=== PATIENT | female | born 1985 | race African-American/Black ===

== ENCOUNTER 2017-06-22 13:25 | Emergency (ER) | payer MEDICAID ==
[~2017-06-22] VITALS: Ht 160 cm; Wt 105.0 kg
[2017-06-22] MEDS ORDERED: MORPHINE SULFATE 4 MG/ML CPJ (NOT FOR IM USE) IV STA (15:44)
[2017-06-22] MEDS ORDERED: ONDANSETRON HCL 4MG/2ML VIAL IV STA (15:44)
[2017-06-22] MEDS ORDERED: SODIUM CHLORIDE 0.9% 1,000 ML IV ONE (15:44)
[2017-06-22 16:12] LABS: CLARITY URINE CLEAR (CLEAR); COLOR URINE YELLOW (YELLOW); GLUCOSE URINE NEGATIVE (NEGATIVE); KETONES URINE NEGATIVE (NEGATIVE); LEUKOCYTE ESTERASE URINE NEGATIVE (NEGATIVE); NITRITE URINE NEGATIVE (NEGATIVE); OCCULT BLOOD URINE 3+ (NEGATIVE); PH URINE 6.5 (4.5-8.0); PROTEIN URINE NEGATIVE (NEGATIVE); SPECIFIC GRAVITY URINE 1.004 (1.005-1.030); UROBILINOGEN URINE 0.2 E.U./dL (0.2-1.0)
[2017-06-22 16:13] LABS: BASOPHILS % 0.5 % (0.0-2.0); CHLORIDE 100 mEq/L (98-107); EOSINOPHILS % 0.1 % (0.0-5.0); HEMATOCRIT. 33.2 % (36.0-48.0); LYMPHOCYTES % 21.1 % (20.0-50.0); MEAN CORPUSCULAR HEMOGLOBIN 26.6 pg (28.0-32.0); MEAN CORPUSCULAR VOLUME 80.3 fL (81.0-99.0); MEAN PLATELET VOLUME 9.2 fl (7.4-10.4); NEUTROPHILS % 72.3 % (40.0-76.0); PLATELET 252 x1000/uL (130-400); RED BLOOD CELL COUNT 4.14 mill/uL (4.2-5.4); RED CELL DISTRIBUTION WIDTH 14.7 % (11.6-14.6)
[2017-06-22 16:19] LABS: HCG SCREEN NEGATIVE
[2017-06-22 16:21] LABS: CARBON DIOXIDE 27 mEq/L (21-32)
[2017-06-22 17:47] VITALS: BP 113/68
== END 2017-06-22 17:51 | disposition home or self-care (01) ==
LOC: ER 14:04
DX: R10.30 Lower abdominal pain, unspecified (principal); I10 Essential (primary) hypertension; E11.9 Type 2 diabetes mellitus without complications; F17.200 Nicotine dependence, unspecified, uncomplicated
CPT/HCPCS: 36415; 80053; 81001; 84703; 85025; 96360; 99284; Z7610; J7030

== ENCOUNTER 2017-09-16 04:12 | Emergency (ER) | payer MEDICAID ==
[~2017-09-16] VITALS: Ht 162.6 cm; Wt 115.0 kg
[2017-09-16 04:21] VITALS: BP 146/99
[2017-09-16] MEDS ORDERED: ACETAMINOPHEN 325MG TABLET PO ONE (04:45)
== END 2017-09-16 05:30 | disposition home or self-care (01) ==
LOC: ER 04:12
DX: O26.891 Other specified pregnancy related conditions, first trimester (principal); T16.1XXA Foreign body in right ear, initial encounter; I10 Essential (primary) hypertension; E11.9 Type 2 diabetes mellitus without complications; Z3A.01 Less than 8 weeks gestation of pregnancy; X58.XXXA Exposure to other specified factors, initial encounter; Y93.89 Activity, other specified; Y92.89 Other specified places as the place of occurrence of the external cause; Y99.8 Other external cause status
CPT/HCPCS: 81025; 99282

== ENCOUNTER 2019-07-23 09:57 | Emergency (ER) | payer MEDICAID ==
[~2019-07-23] VITALS: Ht 172.7 cm; Wt 110.0 kg
[2019-07-23] MEDS ORDERED: SODIUM CHLORIDE 0.9% 1,000 ML IV ONE (10:14)
[2019-07-23] MEDS ORDERED: ALBUTEROL (0.083%) 2.5MG/3ML NEB HHN STA (10:52)
[2019-07-23 10:55] LABS: EOSINOPHILS % 1.1 % (0.0-5.0); HEMATOCRIT. 35.1 % (36.0-48.0); MEAN CORPUSCULAR HEMOGLOBIN 29.5 pg (28.0-32.0); MEAN CORPUSCULAR VOLUME 85.9 fL (81.0-99.0); MEAN PLATELET VOLUME 9.3 fl (7.4-10.4); MONOCYTES % 9.5 % (2.0-8.0); NEUTROPHILS % 56.4 % (40.0-76.0); PLATELET 244 x1000/uL (130-400); RED BLOOD CELL COUNT 4.08 mill/uL (4.2-5.4); RED CELL DISTRIBUTION WIDTH 13.7 % (11.6-14.6)
[2019-07-23 11:04] LABS: HCG SCREEN NEGATIVE
[2019-07-23 11:16] LABS: CHLORIDE 103 mEq/L (98-107)
[2019-07-23 11:19] LABS: CLARITY URINE CLEAR (CLEAR); COLOR URINE YELLOW (YELLOW); KETONES URINE NEGATIVE (NEGATIVE); LEUKOCYTE ESTERASE URINE NEGATIVE (NEGATIVE); NITRITE URINE NEGATIVE (NEGATIVE); OCCULT BLOOD URINE NEGATIVE (NEGATIVE); PROTEIN URINE NEGATIVE (NEGATIVE); SPECIFIC GRAVITY URINE 1.004 (1.005-1.030); UROBILINOGEN URINE 0.2 E.U./dL (0.2-1.0)
[2019-07-23 11:40] LABS: *AMPHETAMINES SCREEN URINE NEGATIVE (NEGATIVE); *BARBITURATES SCREEN URINE NEGATIVE (NEGATIVE)
[2019-07-23 11:41] LABS: *BENZODIAZEPINES SCREEN URINE NEGATIVE (NEGATIVE); *COCAINE SCREEN URINE NEGATIVE (NEGATIVE); METHADONE URINE SCREEN NEGATIVE (NEGATIVE); OPIATES URINE SCREEN NEGATIVE (NEGATIVE); PHENCYCLIDINE URINE SCREEN NEGATIVE (NEGATIVE)
[2019-07-23 11:42] LABS: CANNABINOID URINE SCREEN NEGATIVE (NEGATIVE)
[2019-07-23] MEDS ORDERED: POTASSIUM CHLORIDE 20MEQ TABLET SR PO ONE (12:15)
[2019-07-23 13:37] VITALS: BP 134/87
== END 2019-07-23 13:27 | disposition home or self-care (01) ==
LOC: ER 09:57
DX: J20.9 Acute bronchitis, unspecified (principal); R07.89 Other chest pain; E87.8 Other disorders of electrolyte and fluid balance, not elsewhere classified; E11.9 Type 2 diabetes mellitus without complications; I10 Essential (primary) hypertension; Z98.890 Other specified postprocedural states
CPT/HCPCS: 36415; 71045; 80053; 80305; 81003; 81025; 82962; 83880; 84484; 84703; 85025; 93005; 93970; 94640; 99284; J7030; J7611; Z7610

== ENCOUNTER 2019-11-17 21:37 | Emergency (ER) | payer MEDICAID ==
[~2019-11-17] VITALS: Ht 162.6 cm; Wt 100.0 kg
[2019-11-17] MEDS ORDERED: MAGNESIUM/ALUMINUM HYDROXIDE/SIMETHICONE 30ML UDC PO STA (22:57)
[2019-11-17] MEDS ORDERED: VISCOUS LIDOCAINE 2% 15 ML UDC PO STA (22:57)
[2019-11-17] MEDS ORDERED: OMEPRAZOLE 20MG CAPSULE EXTENDED RELEASE PO ONE (23:00)
[2019-11-17 23:25] LABS: CLARITY URINE CLEAR (CLEAR); COLOR URINE YELLOW (YELLOW); KETONES URINE NEGATIVE (NEGATIVE); LEUKOCYTE ESTERASE URINE NEGATIVE (NEGATIVE); NITRITE URINE NEGATIVE (NEGATIVE); OCCULT BLOOD URINE 2+ (NEGATIVE); PH URINE 6.5 (4.5-8.0); PROTEIN URINE TRACE (NEGATIVE); SPECIFIC GRAVITY URINE 1.009 (1.005-1.030); UROBILINOGEN URINE 0.2 E.U./dL (0.2-1.0)
[2019-11-17] MEDS ORDERED: ASPIRIN 81MG TABLET PO ONE (23:45)
[2019-11-18 00:03] LABS: BASOPHILS % 0.6 % (0.0-2.0); EOSINOPHILS % 0.9 % (0.0-5.0); HEMOGLOBIN. 11.6 g/dL (12.0-16.0); LYMPHOCYTES % 29.6 % (20.0-50.0); MEAN CORPUSCULAR HEMOGLOBIN 28.7 pg (28.0-32.0); MEAN CORPUSCULAR VOLUME 86.9 fL (81.0-99.0); MEAN PLATELET VOLUME 8.9 fl (7.4-10.4); MONOCYTES % 5.2 % (2.0-8.0); NEUTROPHILS % 63.7 % (40.0-76.0); PLATELET 284 x1000/uL (130-400); RED BLOOD CELL COUNT 4.03 mill/uL (4.2-5.4); RED CELL DISTRIBUTION WIDTH 13.3 % (11.6-14.6)
[2019-11-18 00:12] LABS: CHLORIDE 104 mEq/L (98-107)
[2019-11-18 00:13] LABS: D-DIMER 0.91 mg/L FEU (<0.50); PARTIAL THROMBOPLASTIN TIME 26.8 sec (23.4-31.0); PROTHROMBIN TIME 10.5 sec (9.6-11.0)
[2019-11-18] MEDS ORDERED: CEFTRIAXONE 1 G PREMIX 50 ML IV ONE (01:00)
[2019-11-18] MEDS ORDERED: IOHEXOL-350 100 ML BOTTLE ONE (03:14)
[2019-11-18] MEDS ORDERED: POTASSIUM CHLORIDE 20MEQ TABLET SR PO SCH (11:15)
[2019-11-18 13:15] LABS: *AMPHETAMINES SCREEN URINE NEGATIVE (NEGATIVE)
[2019-11-18 13:16] LABS: *BARBITURATES SCREEN URINE NEGATIVE (NEGATIVE); *BENZODIAZEPINES SCREEN URINE NEGATIVE (NEGATIVE); *COCAINE SCREEN URINE NEGATIVE (NEGATIVE); METHADONE URINE SCREEN NEGATIVE (NEGATIVE); OPIATES URINE SCREEN NEGATIVE (NEGATIVE)
[2019-11-18 13:17] LABS: CANNABINOID URINE SCREEN NEGATIVE (NEGATIVE); PHENCYCLIDINE URINE SCREEN NEGATIVE (NEGATIVE)
[2019-11-18 13:28] LABS: LDL CHOLESTEROL 85 mg/dL (5-100)
[2019-11-18 13:30] LABS: HDL CHOLESTEROL 47 mg/dL (40-59)
[2019-11-18] MEDS ORDERED: OMEP20CA14 MT (16:18)
[2019-11-18 18:51] VITALS: BP 110/63
[2019-11-18] MEDS ORDERED: FAMOTIDINE 20MG TABLET PO SCH (21:00)
== END 2019-11-18 19:28 | disposition home or self-care (01) ==
LOC: ER 21:37 → EDBEDREQTM 11-18 04:35 → EDBEDREQ 11-18 04:35 → EDBEDREQDT 11-18 04:35 → EDBEDREQSVC 11-18 04:36 → ER 11-18 19:28 → CANRESERV 11-18 19:56 → ENRESERV 11-18 19:56 → CANBEDREQ 11-18 23:55
DX: R07.89 Other chest pain (principal); E11.9 Type 2 diabetes mellitus without complications; I10 Essential (primary) hypertension; E87.6 Hypokalemia; R94.31 Abnormal electrocardiogram [ECG] [EKG]; Z98.890 Other specified postprocedural states
CPT/HCPCS: 36415; 71045; 71275; 80053; 80061; 80305; 81003; 81025; 82962; 83690; 83880; 84443; 84484; 85025; 85379; 85610; 85730; 93005; 96365; 96366; 99284; J0696; Q9967; Z7610

== ENCOUNTER 2020-06-10 14:45 | Emergency (ER) | payer MEDICAID ==
[~2020-06-10] VITALS: Ht 160 cm; Wt 93.0 kg
[~2020-06-10 14:45] MED LIST: OMEP20CA14 MT
[2020-06-10] MEDS ORDERED: KETOROLAC 30MG/ML VIAL IV STA (16:00)
[2020-06-10] MEDS ORDERED: ONDANSETRON HCL 4MG/2ML INJ IV STA (16:00)
[2020-06-10 16:16] LABS: BASOPHILS % 0.7 % (0.0-2.0); EOSINOPHILS % 2.2 % (0.0-5.0); HEMATOCRIT. 32.1 % (36.0-48.0); HEMOGLOBIN. 10.5 g/dL (12.0-16.0); LYMPHOCYTES % 23.1 % (20.0-50.0); MEAN CORPUSCULAR HEMOGLOBIN 26.6 pg (28.0-32.0); MEAN CORPUSCULAR VOLUME 81.1 fL (81.0-99.0); MEAN PLATELET VOLUME 8.6 fl (7.4-10.4); MONOCYTES % 7.4 % (2.0-8.0); NEUTROPHILS % 66.6 % (40.0-76.0); PLATELET 282 x1000/uL (130-400); RED BLOOD CELL COUNT 3.96 mill/uL (4.2-5.4)
[2020-06-10 16:24] LABS: PROTHROMBIN TIME 10.8 sec (9.6-11.0)
[2020-06-10 16:25] LABS: CHLORIDE 104 mEq/L (98-107)
[2020-06-10 16:27] LABS: HCG SCREEN NEGATIVE
[2020-06-10 16:29] LABS: CLARITY URINE CLEAR (CLEAR); COLOR URINE YELLOW (YELLOW); KETONES URINE NEGATIVE (NEGATIVE); LEUKOCYTE ESTERASE URINE NEGATIVE (NEGATIVE); NITRITE URINE NEGATIVE (NEGATIVE); OCCULT BLOOD URINE NEGATIVE (NEGATIVE); PH URINE 6.5 (4.5-8.0); PROTEIN URINE NEGATIVE (NEGATIVE); SPECIFIC GRAVITY URINE 1.007 (1.005-1.030); UROBILINOGEN URINE 0.2 E.U./dL (0.2-1.0)
[2020-06-10 18:13] VITALS: BP 119/66
== END 2020-06-10 18:16 | disposition home or self-care (01) ==
LOC: ER 15:26
DX: R10.84 Generalized abdominal pain (principal); I10 Essential (primary) hypertension; D64.9 Anemia, unspecified; E11.9 Type 2 diabetes mellitus without complications
CPT/HCPCS: 36415; 74176; 80053; 81003; 81025; 83690; 84703; 85025; 85610; 99284; J1885; J2405

== ENCOUNTER 2020-07-17 20:22 | Emergency (ER) | payer MEDICAID ==
[~2020-07-17] VITALS: Ht 160 cm; Wt 97.0 kg
[2020-07-17 20:28] VITALS: BP 136/88
== END 2020-07-17 23:30 | disposition home or self-care (01) ==
LOC: ER 20:22
DX: J32.9 Chronic sinusitis, unspecified (principal); H69.83 Other specified disorders of Eustachian tube, bilateral; G44.209 Tension-type headache, unspecified, not intractable
CPT/HCPCS: 81025; 82962; 99283

== ENCOUNTER 2020-08-09 19:56 | Emergency (ER) | payer MEDICAID ==
[~2020-08-09] VITALS: Ht 160 cm; Wt 96.0 kg
[2020-08-09 20:27] VITALS: BP 145/103
[2020-08-09] MEDS ORDERED: ACETAMINOPHEN 325MG TABLET PO ONE (21:45)
[2020-08-09] MEDS ORDERED: IBUPROFEN 400MG TABLET PO ONE (21:45)
== END 2020-08-09 22:23 | disposition home or self-care (01) ==
LOC: ER 19:56
DX: G44.209 Tension-type headache, unspecified, not intractable (principal); E11.9 Type 2 diabetes mellitus without complications; I10 Essential (primary) hypertension; Z98.890 Other specified postprocedural states
CPT/HCPCS: 99283

== ENCOUNTER 2020-08-12 13:16 | Emergency (ER) | payer MEDICAID ==
[~2020-08-12] VITALS: Ht 160 cm; Wt 100.0 kg
[2020-08-12 14:18] LABS: BASOPHILS % 0.4 % (0.0-2.0); EOSINOPHILS % 0.9 % (0.0-5.0); HEMATOCRIT. 32.1 % (36.0-48.0); HEMOGLOBIN. 10.3 g/dL (12.0-16.0); MONOCYTES % 5.4 % (2.0-8.0); NEUTROPHILS % 73.3 % (40.0-76.0); PLATELET 240 x1000/uL (130-400); RED BLOOD CELL COUNT 3.97 mill/uL (4.2-5.4); RED CELL DISTRIBUTION WIDTH 16.2 % (11.6-14.6)
[2020-08-12 14:25] LABS: CHLORIDE 103 mEq/L (98-107)
[2020-08-12] MEDS ORDERED: SODIUM CHLORIDE 0.9% 1,000 ML IV ONE (15:33)
[2020-08-12] MEDS ORDERED: IOHEXOL-350 100 ML BOTTLE ONE (15:58)
[2020-08-12] MEDS ORDERED: CETIRIZINE 10MG TABLET PO SCH (17:45)
[2020-08-12] MEDS ORDERED: ACETAMINOPHEN 500MG TABLET PO ONE (17:45)
[2020-08-12 18:00] VITALS: BP 125/85
[2020-08-18] MEDS ORDERED: METF-414 MT (09:32)
[2020-08-18] MEDS ORDERED: OMEP40CA12 MT (09:32)
[2020-08-18] MEDS ORDERED: HYDR12.54 MT (09:32)
[2020-08-18] MEDS ORDERED: LISI-604 MT (09:32)
== END 2020-08-12 18:03 | disposition home or self-care (01) ==
LOC: ER 13:22
DX: R07.9 Chest pain, unspecified (principal); J32.9 Chronic sinusitis, unspecified; E11.9 Type 2 diabetes mellitus without complications; I10 Essential (primary) hypertension
CPT/HCPCS: 36415; 71045; 71275; 80053; 81025; 83880; 84443; 84484; 85025; 85379; 93005; 96360; 99285; Q9967

== ENCOUNTER 2020-09-03 14:38 | Emergency (ER) | payer MEDICAID ==
[~2020-09-03] VITALS: Ht 160 cm; Wt 120.0 kg
[~2020-09-03 14:38] MED LIST changes: +HYDR12.54 MT; +LISI-604 MT; +METF-414 MT; -OMEP20CA14 MT; +OMEP40CA12 MT
[2020-09-03] MEDS ORDERED: MAGNESIUM/ALUMINUM HYDROXIDE/SIMETHICONE 30ML UDC PO STA (14:58)
[2020-09-03] MEDS ORDERED: FAMOTIDINE 20MG/2ML VIAL IV STA (14:58)
[2020-09-03] MEDS ORDERED: SODIUM CHLORIDE 0.9% 1,000 ML IV ONE (15:00)
[2020-09-03 16:00] LABS: BASOPHILS % 0.8 % (0.0-2.0); EOSINOPHILS % 2.4 % (0.0-5.0); HEMATOCRIT. 30.8 % (36.0-48.0); HEMOGLOBIN. 9.9 g/dL (12.0-16.0); LYMPHOCYTES % 28.6 % (20.0-50.0); MEAN CORPUSCULAR HEMOGLOBIN 26.2 pg (28.0-32.0); MEAN CORPUSCULAR VOLUME 81.3 fL (81.0-99.0); MEAN PLATELET VOLUME 9.6 fl (7.4-10.4); MONOCYTES % 7.8 % (2.0-8.0); NEUTROPHILS % 60.4 % (40.0-76.0); PLATELET 240 x1000/uL (130-400); RED BLOOD CELL COUNT 3.79 mill/uL (4.2-5.4); RED CELL DISTRIBUTION WIDTH 16.2 % (11.6-14.6)
[2020-09-03 16:03] LABS: CHLORIDE 103 mEq/L (98-107)
[2020-09-03 16:12] LABS: PROTHROMBIN TIME 10.9 sec (9.6-11.0)
[2020-09-03 18:50] VITALS: BP 133/75
== END 2020-09-03 18:56 | disposition home or self-care (01) ==
LOC: ER 14:38
DX: K29.00 Acute gastritis without bleeding (principal); E11.9 Type 2 diabetes mellitus without complications; K21.9 Gastro-esophageal reflux disease without esophagitis; I10 Essential (primary) hypertension; Z98.51 Tubal ligation status; Z79.899 Other long term (current) drug therapy
CPT/HCPCS: 36415; 80053; 81025; 83690; 85025; 85610; 93005; 96361; 96374; 99284; J3490; J7030

== ENCOUNTER 2020-09-17 15:45 | Emergency (ER) | payer MEDICAID ==
[~2020-09-17] VITALS: Ht 160 cm; Wt 92.0 kg
[2020-09-17] MEDS ORDERED: MAGNESIUM/ALUMINUM HYDROXIDE/SIMETHICONE 30ML UDC PO ONE (16:15)
[2020-09-17] MEDS ORDERED: DICYCLOMINE 10 MG/5 ML ORAL SYR PO ONE (16:15)
[2020-09-17] MEDS ORDERED: VISCOUS LIDOCAINE 2% 15 ML UDC PO ONE (16:15)
[2020-09-17 18:02] LABS: BASOPHILS % 0.8 % (0.0-2.0); EOSINOPHILS % 2.1 % (0.0-5.0); HEMATOCRIT. 30.4 % (36.0-48.0); LYMPHOCYTES % 23.3 % (20.0-50.0); MEAN CORPUSCULAR HEMOGLOBIN 26.6 pg (28.0-32.0); MEAN PLATELET VOLUME 9.1 fl (7.4-10.4); MONOCYTES % 6.2 % (2.0-8.0); NEUTROPHILS % 67.6 % (40.0-76.0); PLATELET 261 x1000/uL (130-400); RED BLOOD CELL COUNT 3.75 mill/uL (4.2-5.4); RED CELL DISTRIBUTION WIDTH 15.5 % (11.6-14.6)
[2020-09-17 18:08] LABS: CHLORIDE 98 mEq/L (98-107)
[2020-09-17 18:12] LABS: CLARITY URINE CLEAR (CLEAR); COLOR URINE YELLOW (YELLOW); KETONES URINE NEGATIVE (NEGATIVE); LEUKOCYTE ESTERASE URINE NEGATIVE (NEGATIVE); NITRITE URINE NEGATIVE (NEGATIVE); OCCULT BLOOD URINE NEGATIVE (NEGATIVE); PH URINE 6.5 (4.5-8.0); PROTEIN URINE NEGATIVE (NEGATIVE); SPECIFIC GRAVITY URINE 1.004 (1.005-1.030); UROBILINOGEN URINE 0.2 E.U./dL (0.2-1.0)
[2020-09-17] MEDS ORDERED: SODIUM CHLORIDE 0.9% 1,000 ML IV ONE (18:45)
[2020-09-17 20:55] VITALS: BP 128/11
== END 2020-09-17 20:55 | disposition home or self-care (01) ==
LOC: ER 15:45
DX: R10.0 Acute abdomen (principal); R07.89 Other chest pain; I10 Essential (primary) hypertension; E11.9 Type 2 diabetes mellitus without complications; Z79.84 Long term (current) use of oral hypoglycemic drugs; Z79.899 Other long term (current) drug therapy
CPT/HCPCS: 36415; 71045; 80053; 81003; 81025; 84484; 85025; 93005; 99285; J7030

== ENCOUNTER 2020-10-02 08:51 | Emergency (ER) | payer MEDICAID ==
[~2020-10-02] VITALS: Ht 160 cm; Wt 91.0 kg
[2020-10-02 09:17] VITALS: BP 118/87
[2020-10-02] MEDS ORDERED: DICYCLOMINE 10 MG/5 ML ORAL SYR PO STA (11:03)
[2020-10-02] MEDS ORDERED: VISCOUS LIDOCAINE 2% 15 ML UDC PO STA (11:03)
[2020-10-02] MEDS ORDERED: MAGNESIUM/ALUMINUM HYDROXIDE/SIMETHICONE 30ML UDC PO STA (11:03)
[2020-10-02 11:44] LABS: BASOPHILS % 0.8 % (0.0-2.0); EOSINOPHILS % 1.4 % (0.0-5.0); HEMATOCRIT. 33.7 % (36.0-48.0); LYMPHOCYTES % 19.8 % (20.0-50.0); MEAN CORPUSCULAR HEMOGLOBIN 26.3 pg (28.0-32.0); MEAN CORPUSCULAR VOLUME 80.6 fL (81.0-99.0); MEAN PLATELET VOLUME 9.2 fl (7.4-10.4); MONOCYTES % 5.3 % (2.0-8.0); NEUTROPHILS % 72.7 % (40.0-76.0); PLATELET 283 x1000/uL (130-400); RED BLOOD CELL COUNT 4.19 mill/uL (4.2-5.4); RED CELL DISTRIBUTION WIDTH 15.3 % (11.6-14.6)
[2020-10-02 11:46] LABS: CHLORIDE 102 mEq/L (98-107)
== END 2020-10-02 12:12 | disposition home or self-care (01) ==
LOC: ER 08:51
DX: R00.2 Palpitations (principal); I10 Essential (primary) hypertension; E11.9 Type 2 diabetes mellitus without complications; K21.9 Gastro-esophageal reflux disease without esophagitis; Z79.899 Other long term (current) drug therapy; Z98.51 Tubal ligation status
CPT/HCPCS: 36415; 80048; 85025; 93005; 99284

== ENCOUNTER 2020-10-02 22:43 | Emergency (ER) | payer MEDICAID ==
[~2020-10-02] VITALS: Ht 160 cm; Wt 92.0 kg
[2020-10-02 23:00] VITALS: BP 134/90
[2020-10-02] MEDS ORDERED: NITROGLYCERIN 0.4MG TABLET SL SL PRN (23:30)
[2020-10-02] MEDS ORDERED: FAMOTIDINE 20MG TABLET PO ONE (23:30)
[2020-10-02] MEDS ORDERED: ASPIRIN 81MG TABLET PO ONE (23:30)
[2020-10-02 23:46] LABS: BASOPHILS % 0.9 % (0.0-2.0); EOSINOPHILS % 3.9 % (0.0-5.0); HEMATOCRIT. 33.2 % (36.0-48.0); HEMOGLOBIN. 10.9 g/dL (12.0-16.0); LYMPHOCYTES % 34.5 % (20.0-50.0); MEAN CORPUSCULAR HEMOGLOBIN 26.7 pg (28.0-32.0); MEAN CORPUSCULAR VOLUME 81.6 fL (81.0-99.0); MEAN PLATELET VOLUME 8.9 fl (7.4-10.4); MONOCYTES % 8.4 % (2.0-8.0); NEUTROPHILS % 52.3 % (40.0-76.0); PLATELET 275 x1000/uL (130-400); RED BLOOD CELL COUNT 4.07 mill/uL (4.2-5.4); RED CELL DISTRIBUTION WIDTH 15.5 % (11.6-14.6)
[2020-10-02 23:50] LABS: CHLORIDE 102 mEq/L (98-107)
[2020-10-03 00:12] LABS: HCG SCREEN NEGATIVE
== END 2020-10-03 03:06 | disposition home or self-care (01) ==
LOC: ER 22:43
DX: R07.89 Other chest pain (principal); I10 Essential (primary) hypertension; E11.9 Type 2 diabetes mellitus without complications; K21.9 Gastro-esophageal reflux disease without esophagitis; Z79.899 Other long term (current) drug therapy; Z79.84 Long term (current) use of oral hypoglycemic drugs; Z98.51 Tubal ligation status
CPT/HCPCS: 36415; 71045; 80053; 83880; 84484; 84703; 85025; 93005; 99285; Z7610

== ENCOUNTER 2020-10-11 17:12 | Emergency (ER) | payer MEDICAID ==
[~2020-10-11] VITALS: Ht 160 cm; Wt 92.0 kg
[2020-10-11] MEDS ORDERED: MAGNESIUM/ALUMINUM HYDROXIDE/SIMETHICONE 30ML UDC PO ONE (22:30)
[2020-10-11] MEDS ORDERED: SODIUM CHLORIDE 0.9% 1,000 ML IV ONE (22:30)
[2020-10-11] MEDS ORDERED: VISCOUS LIDOCAINE 2% 15 ML UDC PO ONE (22:30)
[2020-10-11] MEDS: KETOROLAC 15MG/ML VIAL IV ONE ×2 (22:30→23:13)
[2020-10-11 22:51] LABS: BASOPHILS % 0.7 % (0.0-2.0); EOSINOPHILS % 1.8 % (0.0-5.0); HEMATOCRIT. 32.1 % (36.0-48.0); HEMOGLOBIN. 10.5 g/dL (12.0-16.0); LYMPHOCYTES % 27.3 % (20.0-50.0); MEAN CORPUSCULAR HEMOGLOBIN 26.3 pg (28.0-32.0); MEAN CORPUSCULAR VOLUME 80.3 fL (81.0-99.0); MEAN PLATELET VOLUME 9.3 fl (7.4-10.4); MONOCYTES % 5.3 % (2.0-8.0); NEUTROPHILS % 64.9 % (40.0-76.0); PLATELET 282 x1000/uL (130-400); RED CELL DISTRIBUTION WIDTH 15.3 % (11.6-14.6)
[2020-10-11 22:56] LABS: CHLORIDE 102 mEq/L (98-107)
[2020-10-11 22:59] LABS: HCG SCREEN NEGATIVE
[2020-10-12 00:45] VITALS: BP 134/83
== END 2020-10-12 02:09 | disposition home or self-care (01) ==
LOC: ER 17:12
DX: F41.1 Generalized anxiety disorder (principal); K21.9 Gastro-esophageal reflux disease without esophagitis; D50.9 Iron deficiency anemia, unspecified; I10 Essential (primary) hypertension
CPT/HCPCS: 36415; 80053; 83690; 84484; 84703; 85025; 93005; 99284; J7030; J1885

== ENCOUNTER 2020-10-15 12:31 | Inpatient (IN) | payer MEDICAID ==
[~2020-10-15] VITALS: Ht 157.5 cm; Wt 88.5 kg
[2020-10-15] MEDS ORDERED: VISCOUS LIDOCAINE 2% 15 ML UDC PO ONE (13:30)
[2020-10-15] MEDS ORDERED: MAGNESIUM/ALUMINUM HYDROXIDE/SIMETHICONE 30ML UDC PO ONE (13:30)
[2020-10-15] MEDS ORDERED: DICYCLOMINE 10 MG/5 ML ORAL SYR PO ONE (13:30)
[2020-10-15 15:14] LABS: EOSINOPHILS % 2.2 % (0.0-5.0); HEMATOCRIT. 33.8 % (36.0-48.0); HEMOGLOBIN. 11.1 g/dL (12.0-16.0); LYMPHOCYTES % 28.6 % (20.0-50.0); MEAN CORPUSCULAR HEMOGLOBIN 26.4 pg (28.0-32.0); MEAN CORPUSCULAR VOLUME 80.6 fL (81.0-99.0); MONOCYTES % 6.3 % (2.0-8.0); NEUTROPHILS % 61.9 % (40.0-76.0); PLATELET 281 x1000/uL (130-400); RED CELL DISTRIBUTION WIDTH 15.2 % (11.6-14.6)
[2020-10-15 15:16] LABS: CHLORIDE 101 mEq/L (98-107)
[2020-10-15] MEDS ORDERED: SODIUM CHLORIDE 0.9% 1,000 ML IV ONE (16:30)
[2020-10-15] MEDS ORDERED: ONDANSETRON HCL 4MG/2ML INJ IV PRN (16:45)
[2020-10-15] MEDS ORDERED: ACETAMINOPHEN 325MG TABLET PO PRN (16:45)
[2020-10-15] MEDS ORDERED: CLONIDINE 0.1MG TABLET PO PRN (16:45)
[2020-10-15] MEDS ORDERED: MORPHINE SULFATE 2 MG/ML CPJ (NOT FOR IM USE) IV PRN (16:45)
[2020-10-15] MEDS ORDERED: DIPHENHYDRAMINE 50MG/ML VIAL IV PRN (16:45)
[2020-10-15] MEDS ORDERED: ASPIRIN 325MG EC TABLET PO ONE (17:00)
[2020-10-16] VITALS (8 sets, daily range): BP systolic 109–136; BP diastolic 68–91
[2020-10-16] MEDS ORDERED: HYDR10TA34 MT (05:30)
[2020-10-16] MEDS ORDERED: ACET-2708 PO (05:58)
[2020-10-16] MEDS ORDERED: ERGO2000 PO (05:58)
[2020-10-16] MEDS ORDERED: FERR325T6 MT (05:58)
[2020-10-16] MEDS ORDERED: Vitamin d (05:58)
[2020-10-16] MEDS ORDERED: ERGO500013 (05:58)
[2020-10-16] MEDS ORDERED: DEXTROSE 50% WATER 50ML SYRINGE IV PRN (06:15)
[2020-10-16] MEDS ORDERED: BLOOD SUGAR DIAGNOSTIC STRIP TEST SCH (07:10)
[2020-10-16] MEDS: BLOOD SUGAR DIAGNOSTIC STRIP TEST SCH ×4 (07:31→21:54)
[2020-10-16] MEDS: INSULIN LISPRO 100 UNITS/ML SUBCUT SCH ×4 (07:32→21:00)
[2020-10-16] MEDS ORDERED: REGADENOSON 0.4 MG/5 ML IV NR (07:59)
[2020-10-16] MEDS: OMEPRAZOLE 20MG CAPSULE EXTENDED RELEASE PO SCH (08:29)
[2020-10-16] MEDS ORDERED: REGADENOSON 0.4 MG/5 ML IV ONE (09:07)
[2020-10-16 12:16] LABS: T4 FREE 1.18 ng/dL (0.76-1.46)
[2020-10-16] MEDS: DEXT 5%/0.9% NACL 1,000 ML IV SCH ×2 (14:00→23:19)
[2020-10-16] MEDS: METFORMIN HCL 500MG TABLET PO SCH (16:00)
[2020-10-16] MEDS: LISINOPRIL 20MG TABLET PO SCH (16:00)
[2020-10-16] MEDS: HYDROCHLOROTHIAZIDE 12.5MG CAPSULE PO SCH (16:30)
[2020-10-16] MEDS ORDERED: OMEPRAZOLE 20MG CAPSULE EXTENDED RELEASE PO SCH (17:45)
[2020-10-16 18:41] LABS: TOTAL IRON BINDING CAPACITY 374 ug/dL (250-450)
[2020-10-16 19:50] LABS: CREATINE KINASE 106 IU/L (26-192)
[2020-10-16 19:51] LABS: CREATINE KINASE MB FRACTION < 1.0 ng/mL (0.5-3.6)
[2020-10-16 20:07] LABS: HCG SCREEN NEGATIVE
[2020-10-16] MEDS ORDERED: ACETAMINOPHEN 325MG TABLET ONE (22:11)
[2020-10-16] MEDS ORDERED: HYDROCHLOROTHIAZIDE 12.5MG CAPSULE PO NR (23:00)
[2020-10-16] MEDS ORDERED: LISINOPRIL 20MG TABLET PO SCH (23:00)
[2020-10-17] VITALS: BP 114/70
[2020-10-17 01:03] VITALS: BP 134/91
[2020-10-17 04:00] VITALS: BP 105/54
[2020-10-17] MEDS: BLOOD SUGAR DIAGNOSTIC STRIP TEST SCH ×3 (06:36→17:45)
[2020-10-17] MEDS: OMEPRAZOLE 20MG CAPSULE EXTENDED RELEASE PO SCH (07:04)
[2020-10-17 07:18] LABS: BASOPHILS % 0.8 % (0.0-2.0); EOSINOPHILS % 5.2 % (0.0-5.0); HEMATOCRIT. 30.4 % (36.0-48.0); HEMOGLOBIN. 10.1 g/dL (12.0-16.0); LYMPHOCYTES % 40.1 % (20.0-50.0); MEAN CORPUSCULAR HEMOGLOBIN 26.7 pg (28.0-32.0); MEAN CORPUSCULAR VOLUME 80.4 fL (81.0-99.0); MEAN PLATELET VOLUME 9.4 fl (7.4-10.4); MONOCYTES % 10.2 % (2.0-8.0); NEUTROPHILS % 43.7 % (40.0-76.0); PLATELET 237 x1000/uL (130-400); RED BLOOD CELL COUNT 3.79 mill/uL (4.2-5.4); RED CELL DISTRIBUTION WIDTH 14.8 % (11.6-14.6)
[2020-10-17] MEDS: INSULIN LISPRO 100 UNITS/ML SUBCUT SCH ×3 (07:40→17:40)
[2020-10-17 07:46] LABS: CHLORIDE 103 mEq/L (98-107)
[2020-10-17 07:55] LABS: CREATINE KINASE 91 IU/L (26-192)
[2020-10-17 07:57] LABS: CREATINE KINASE MB FRACTION < 1.0 ng/mL (0.5-3.6)
[2020-10-17 08:00] VITALS: BP 126/85
[2020-10-17] MEDS: METFORMIN HCL 500MG TABLET PO SCH (09:00)
[2020-10-17] MEDS: LISINOPRIL 20MG TABLET PO SCH (11:14)
[2020-10-17] MEDS: HYDROCHLOROTHIAZIDE 12.5MG CAPSULE PO SCH (11:14)
[2020-10-17 12:00] VITALS: BP 126/75
[2020-10-17] MEDS: DEXT 5%/0.9% NACL 1,000 ML IV SCH (14:33)
[2020-10-17] MEDS ORDERED: IOHEXOL-350 100 ML BOTTLE ONE (15:28)
[2020-10-17 16:00] VITALS: BP 122/85
[2020-10-17 16:07] LABS: CREATINE KINASE 112 IU/L (26-192); CREATINE KINASE MB FRACTION < 1.0 ng/mL (0.5-3.6)
[2020-10-18] MEDS ORDERED: FAMOTIDINE 20MG TABLET PO SCH (07:10)
== END 2020-10-17 20:19 | disposition home or self-care (01) | DRG 243 ==
LOC: ER 12:31 → EDBEDREQTM 16:01 → EDBEDREQ 16:22 → EDBEDREQTM 16:22 → ENRESERV 21:58 → ER 10-16 00:03 → 8WST 10-16 01:52
PROVIDERS: ADMIT Internal Medicine; ATTEND Internal Medicine
DX: K21.9 Gastro-esophageal reflux disease without esophagitis (principal); E11.9 Type 2 diabetes mellitus without complications; I10 Essential (primary) hypertension; I20.9 Angina pectoris, unspecified; F41.9 Anxiety disorder, unspecified; D50.9 Iron deficiency anemia, unspecified; Z79.84 Long term (current) use of oral hypoglycemic drugs; Z79.899 Other long term (current) drug therapy; Z98.891 History of uterine scar from previous surgery; Z98.51 Tubal ligation status
CPT/HCPCS: 36415; 71045; 71275; 78452; 80048; 80053; 80061; 82550; 82553; 82728; 82962; 83036; 83540; 83550; 83880; 84439; 84443; 84484; 84703; 85025; 85379; 93005; 93017; 93306; 93970; 99285; A9500; J2785; J7042; Q9967

== ENCOUNTER 2020-10-24 03:57 | Emergency (ER) | payer MEDICAID ==
[~2020-10-24] VITALS: Ht 160 cm; Wt 88.0 kg
[~2020-10-24 03:57] MED LIST changes: +ACET-2708 PO; +ERGO2000 PO; +FERR325T6 MT; +HYDR10TA34 MT
[2020-10-24 04:09] VITALS: BP 150/85
[2020-10-24 05:52] LABS: CLARITY URINE CLOUDY (CLEAR); COLOR URINE YELLOW (YELLOW); KETONES URINE NEGATIVE (NEGATIVE); LEUKOCYTE ESTERASE URINE NEGATIVE (NEGATIVE); NITRITE URINE NEGATIVE (NEGATIVE); OCCULT BLOOD URINE TRACE (NEGATIVE); PROTEIN URINE TRACE (NEGATIVE); SPECIFIC GRAVITY URINE 1.026 (1.005-1.030)
[2020-10-24 06:01] LABS: BASOPHILS % 1.2 % (0.0-2.0); EOSINOPHILS % 2.1 % (0.0-5.0); HEMATOCRIT. 30.8 % (36.0-48.0); HEMOGLOBIN. 10.3 g/dL (12.0-16.0); LYMPHOCYTES % 29.3 % (20.0-50.0); MEAN CORPUSCULAR VOLUME 80.5 fL (81.0-99.0); MEAN PLATELET VOLUME 8.9 fl (7.4-10.4); MONOCYTES % 9.5 % (2.0-8.0); NEUTROPHILS % 57.9 % (40.0-76.0); PLATELET 247 x1000/uL (130-400); RED BLOOD CELL COUNT 3.83 mill/uL (4.2-5.4); RED CELL DISTRIBUTION WIDTH 14.9 % (11.6-14.6)
[2020-10-24 06:11] LABS: CHLORIDE 103 mEq/L (98-107)
== END 2020-10-24 06:57 | disposition home or self-care (01) ==
LOC: ER 03:57
DX: N39.0 Urinary tract infection, site not specified (principal); M79.602 Pain in left arm; M79.605 Pain in left leg; R35.8 Other polyuria; I10 Essential (primary) hypertension
CPT/HCPCS: 36415; 80048; 81003; 81025; 83735; 85025; 93971; 99284

== ENCOUNTER 2020-10-25 18:18 | Emergency (ER) | payer MEDICAID ==
[~2020-10-25] VITALS: Ht 160 cm; Wt 89.0 kg
[2020-10-25] MEDS ORDERED: MAGNESIUM/ALUMINUM HYDROXIDE/SIMETHICONE 30ML UDC PO ONE (19:15)
[2020-10-25] MEDS ORDERED: VISCOUS LIDOCAINE 2% 15 ML UDC MM PRN (19:15)
[2020-10-25 19:57] VITALS: BP 131/74
== END 2020-10-25 19:58 | disposition home or self-care (01) ==
LOC: ER 18:18
DX: K21.9 Gastro-esophageal reflux disease without esophagitis (principal); F41.9 Anxiety disorder, unspecified; E11.9 Type 2 diabetes mellitus without complications; I10 Essential (primary) hypertension; Z98.890 Other specified postprocedural states; Z79.899 Other long term (current) drug therapy
CPT/HCPCS: 99282

== ENCOUNTER 2020-11-22 19:55 | Emergency (ER) | payer MEDICAID ==
[~2020-11-22] VITALS: Ht 160 cm; Wt 88.0 kg
[2020-11-22] MEDS ORDERED: LORAZEPAM 1MG TABLET PO ONE (20:30)
[2020-11-22 22:07] LABS: BASOPHILS % 0.5 % (0.0-2.0); EOSINOPHILS % 0.4 % (0.0-5.0); HEMATOCRIT. 27.8 % (36.0-48.0); HEMOGLOBIN. 9.5 g/dL (12.0-16.0); LYMPHOCYTES % 16.2 % (20.0-50.0); MEAN CORPUSCULAR HEMOGLOBIN 27.2 pg (28.0-32.0); MEAN CORPUSCULAR VOLUME 79.4 fL (81.0-99.0); MEAN PLATELET VOLUME 9.5 fl (7.4-10.4); MONOCYTES % 4.2 % (2.0-8.0); NEUTROPHILS % 78.7 % (40.0-76.0); PLATELET 274 x1000/uL (130-400); RED CELL DISTRIBUTION WIDTH 14.8 % (11.6-14.6)
[2020-11-22 22:13] LABS: HCG SCREEN NEGATIVE
[2020-11-22 22:14] LABS: CHLORIDE 99 mEq/L (98-107)
[2020-11-22 22:16] LABS: *AMPHETAMINES SCREEN URINE NEGATIVE (NEGATIVE); *BARBITURATES SCREEN URINE NEGATIVE (NEGATIVE); *BENZODIAZEPINES SCREEN URINE NEGATIVE (NEGATIVE); *COCAINE SCREEN URINE NEGATIVE (NEGATIVE); METHADONE URINE SCREEN NEGATIVE (NEGATIVE); OPIATES URINE SCREEN NEGATIVE (NEGATIVE); PHENCYCLIDINE URINE SCREEN NEGATIVE (NEGATIVE)
[2020-11-22 22:17] LABS: CANNABINOID URINE SCREEN NEGATIVE (NEGATIVE)
[2020-11-22 22:17] LABS: ETHANOL BLOOD < 10 mg/dL
[2020-11-22 23:45] VITALS: BP 120/60
== END 2020-11-23 00:01 | disposition home or self-care (01) ==
LOC: ER 19:55
DX: F41.1 Generalized anxiety disorder (principal); F43.0 Acute stress reaction; Z63.4 Disappearance and death of family member; R45.89 Other symptoms and signs involving emotional state
CPT/HCPCS: 36415; 71045; 80053; 80305; 80320; 81025; 83880; 84484; 84703; 85025; 93005; 99285; G0480

== ENCOUNTER 2020-11-27 14:24 | Emergency (ER) | payer MEDICAID ==
[~2020-11-27] VITALS: Ht 160 cm; Wt 88.0 kg
[2020-11-27 14:40] VITALS: BP 134/81
[2020-11-27] MEDS ORDERED: ACETAMINOPHEN 325MG TABLET PO ONE (15:45)
== END 2020-11-27 16:11 | disposition home or self-care (01) ==
LOC: ER 14:28
DX: J32.9 Chronic sinusitis, unspecified (principal); I10 Essential (primary) hypertension; K21.9 Gastro-esophageal reflux disease without esophagitis; Z79.899 Other long term (current) drug therapy; Z98.890 Other specified postprocedural states
CPT/HCPCS: 99282

== ENCOUNTER 2020-11-30 13:44 | Emergency (ER) | payer MEDICAID ==
[~2020-11-30] VITALS: Ht 160 cm; Wt 88.0 kg
[2020-11-30 15:38] LABS: CLARITY URINE CLEAR (CLEAR); COLOR URINE YELLOW (YELLOW); KETONES URINE NEGATIVE (NEGATIVE); LEUKOCYTE ESTERASE URINE NEGATIVE (NEGATIVE); NITRITE URINE NEGATIVE (NEGATIVE); OCCULT BLOOD URINE NEGATIVE (NEGATIVE); PH URINE 6.5 (4.5-8.0); PROTEIN URINE NEGATIVE (NEGATIVE); SPECIFIC GRAVITY URINE 1.007 (1.005-1.030); UROBILINOGEN URINE 0.2 E.U./dL (0.2-1.0)
[2020-11-30 15:51] LABS: BASOPHILS % 0.8 % (0.0-2.0); EOSINOPHILS % 1.4 % (0.0-5.0); HEMATOCRIT. 30.6 % (36.0-48.0); LYMPHOCYTES % 24.5 % (20.0-50.0); MEAN CORPUSCULAR HEMOGLOBIN 25.9 pg (28.0-32.0); MEAN CORPUSCULAR VOLUME 79.4 fL (81.0-99.0); MEAN PLATELET VOLUME 8.9 fl (7.4-10.4); MONOCYTES % 6.3 % (2.0-8.0); PLATELET 311 x1000/uL (130-400); RED BLOOD CELL COUNT 3.86 mill/uL (4.2-5.4); RED CELL DISTRIBUTION WIDTH 14.2 % (11.6-14.6)
[2020-11-30 15:56] LABS: CHLORIDE 102 mEq/L (98-107)
[2020-11-30] MEDS ORDERED: IBUPROFEN 600MG TABLET PO STA (16:16)
[2020-11-30] MEDS ORDERED: DICYCLOMINE 10 MG/5 ML ORAL SYR PO STA (16:29)
[2020-11-30] MEDS ORDERED: MAGNESIUM/ALUMINUM HYDROXIDE/SIMETHICONE 30ML UDC PO STA (16:29)
[2020-11-30] MEDS ORDERED: VISCOUS LIDOCAINE 2% 15 ML UDC PO STA (16:29)
[2020-11-30 17:41] VITALS: BP 127/87
== END 2020-11-30 17:43 | disposition home or self-care (01) ==
LOC: ER 15:10
DX: R10.11 Right upper quadrant pain (principal); K76.0 Fatty (change of) liver, not elsewhere classified; I10 Essential (primary) hypertension; E11.9 Type 2 diabetes mellitus without complications; K21.9 Gastro-esophageal reflux disease without esophagitis; Z79.899 Other long term (current) drug therapy
CPT/HCPCS: 36415; 76705; 80053; 81003; 81025; 85025; 93005; 99285

== ENCOUNTER 2020-12-14 11:31 | Emergency (ER) | payer MEDICAID ==
[~2020-12-14] VITALS: Ht 160 cm; Wt 87.0 kg
[2020-12-14 12:07] VITALS: BP 137/84
[2020-12-14 12:12] LABS: BASOPHILS % 0.9 % (0.0-2.0); EOSINOPHILS % 3.1 % (0.0-5.0); HEMATOCRIT. 31.5 % (36.0-48.0); HEMOGLOBIN. 10.2 g/dL (12.0-16.0); LYMPHOCYTES % 29.8 % (20.0-50.0); MEAN CORPUSCULAR HEMOGLOBIN 25.7 pg (28.0-32.0); MEAN CORPUSCULAR VOLUME 79.2 fL (81.0-99.0); MEAN PLATELET VOLUME 9.2 fl (7.4-10.4); MONOCYTES % 10.1 % (2.0-8.0); NEUTROPHILS % 56.1 % (40.0-76.0); PLATELET 228 x1000/uL (130-400); RED BLOOD CELL COUNT 3.98 mill/uL (4.2-5.4); RED CELL DISTRIBUTION WIDTH 14.6 % (11.6-14.6)
[2020-12-14 12:18] LABS: CHLORIDE 97 mEq/L (98-107)
[2020-12-14 12:19] LABS: CLARITY URINE CLOUDY (CLEAR); COLOR URINE ORANGE (YELLOW); KETONES URINE NEGATIVE (NEGATIVE); LEUKOCYTE ESTERASE URINE TRACE (NEGATIVE); NITRITE URINE NEGATIVE (NEGATIVE); OCCULT BLOOD URINE 3+ (NEGATIVE); PH URINE 6.5 (4.5-8.0); PROTEIN URINE 1+ (NEGATIVE); SPECIFIC GRAVITY URINE 1.013 (1.005-1.030); UROBILINOGEN URINE 0.2 E.U./dL (0.2-1.0)
[2020-12-14 12:39] LABS: *AMPHETAMINES SCREEN URINE NEGATIVE (NEGATIVE); *BARBITURATES SCREEN URINE NEGATIVE (NEGATIVE); *BENZODIAZEPINES SCREEN URINE NEGATIVE (NEGATIVE)
[2020-12-14 12:40] LABS: *COCAINE SCREEN URINE NEGATIVE (NEGATIVE); CANNABINOID URINE SCREEN NEGATIVE (NEGATIVE); METHADONE URINE SCREEN NEGATIVE (NEGATIVE); OPIATES URINE SCREEN NEGATIVE (NEGATIVE); PHENCYCLIDINE URINE SCREEN NEGATIVE (NEGATIVE)
== END 2020-12-14 13:11 | disposition home or self-care (01) ==
LOC: ER 11:47
DX: D53.9 Nutritional anemia, unspecified (principal); I10 Essential (primary) hypertension; E11.9 Type 2 diabetes mellitus without complications; R00.0 Tachycardia, unspecified; Z79.899 Other long term (current) drug therapy; Z79.84 Long term (current) use of oral hypoglycemic drugs
CPT/HCPCS: 36415; 80053; 80305; 81003; 81025; 85025; 93005; 99284

== ENCOUNTER 2020-12-19 13:32 | Emergency (ER) | payer MEDICAID ==
[~2020-12-19] VITALS: Ht 167.6 cm; Wt 91.0 kg
[~2020-12-19 13:32] MED LIST changes: -LISI-604 MT; +LISI20TA31 MT
[2020-12-19] MEDS ORDERED: VISCOUS LIDOCAINE 2% 15 ML UDC PO STA (14:16)
[2020-12-19] MEDS ORDERED: MAGNESIUM/ALUMINUM HYDROXIDE/SIMETHICONE 30ML UDC PO STA (14:16)
[2020-12-19 15:33] VITALS: BP 128/87
== END 2020-12-19 15:34 | disposition home or self-care (01) ==
LOC: ER 13:34
DX: K21.9 Gastro-esophageal reflux disease without esophagitis (principal); F41.9 Anxiety disorder, unspecified
CPT/HCPCS: 71045; 81025; 93005; 99283

== ENCOUNTER 2021-01-16 10:54 | Emergency (ER) | payer MEDICAID ==
[~2021-01-16] VITALS: Ht 160 cm; Wt 86.0 kg
[2021-01-16] MEDS ORDERED: PSEUDOEPHEDRINE HCL 30MG TABLET PO ONE (11:30)
[2021-01-16 11:49] LABS: BASOPHILS % 1.1 % (0.0-2.0); EOSINOPHILS % 3.3 % (0.0-5.0); HEMOGLOBIN. 9.7 g/dL (12.0-16.0); LYMPHOCYTES % 32.8 % (20.0-50.0); MEAN CORPUSCULAR HEMOGLOBIN 25.4 pg (28.0-32.0); MEAN CORPUSCULAR VOLUME 78.5 fL (81.0-99.0); MEAN PLATELET VOLUME 9.1 fl (7.4-10.4); MONOCYTES % 6.6 % (2.0-8.0); NEUTROPHILS % 56.2 % (40.0-76.0); PLATELET 304 x1000/uL (130-400); RED BLOOD CELL COUNT 3.82 mill/uL (4.2-5.4); RED CELL DISTRIBUTION WIDTH 15.3 % (11.6-14.6)
[2021-01-16 11:52] LABS: CHLORIDE 101 mEq/L (98-107)
[2021-01-16 12:07] VITALS: BP 128/76
[2021-01-16] MEDS ORDERED: SODIUM CHLORIDE 0.9% 250 ML IV ONE (12:15)
== END 2021-01-16 13:12 | disposition home or self-care (01) ==
LOC: ER 11:09
DX: J32.8 Other chronic sinusitis (principal); R03.0 Elevated blood-pressure reading, without diagnosis of hypertension; R00.0 Tachycardia, unspecified
CPT/HCPCS: 36415; 80053; 85025; 93005; 96360; 99284; J7050; Z7610

== ENCOUNTER 2021-01-29 21:41 | Emergency (ER) | payer MEDICAID ==
[~2021-01-29] VITALS: Ht 160 cm; Wt 84.0 kg
[2021-01-30 00:52] LABS: CHLORIDE 102 mEq/L (98-107)
[2021-01-30 00:53] LABS: BASOPHILS % 0.9 % (0.0-2.0); EOSINOPHILS % 2.3 % (0.0-5.0); HEMATOCRIT. 29.9 % (36.0-48.0); HEMOGLOBIN. 9.7 g/dL (12.0-16.0); LYMPHOCYTES % 39.5 % (20.0-50.0); MEAN CORPUSCULAR HEMOGLOBIN 25.7 pg (28.0-32.0); MEAN CORPUSCULAR VOLUME 79.1 fL (81.0-99.0); MEAN PLATELET VOLUME 9.3 fl (7.4-10.4); MONOCYTES % 6.7 % (2.0-8.0); NEUTROPHILS % 50.6 % (40.0-76.0); PLATELET 282 x1000/uL (130-400); RED BLOOD CELL COUNT 3.79 mill/uL (4.2-5.4); RED CELL DISTRIBUTION WIDTH 15.9 % (11.6-14.6)
[2021-01-30 01:02] LABS: CLARITY URINE CLEAR (CLEAR); COLOR URINE YELLOW (YELLOW); KETONES URINE NEGATIVE (NEGATIVE); LEUKOCYTE ESTERASE URINE NEGATIVE (NEGATIVE); NITRITE URINE NEGATIVE (NEGATIVE); OCCULT BLOOD URINE NEGATIVE (NEGATIVE); PH URINE 7.5 (4.5-8.0); PROTEIN URINE NEGATIVE (NEGATIVE); SPECIFIC GRAVITY URINE 1.009 (1.005-1.030); UROBILINOGEN URINE 0.2 E.U./dL (0.2-1.0)
[2021-01-30 01:08] LABS: B-HCG QUANTITATIVE < 1 mIU/mL (<3)
[2021-01-30 02:00] VITALS: BP 122/73
== END 2021-01-30 02:00 | disposition home or self-care (01) ==
LOC: ER 21:41
DX: R42 Dizziness and giddiness (principal); D64.9 Anemia, unspecified; E87.6 Hypokalemia; N93.8 Other specified abnormal uterine and vaginal bleeding; I10 Essential (primary) hypertension; E11.9 Type 2 diabetes mellitus without complications; Z79.899 Other long term (current) drug therapy
CPT/HCPCS: 36415; 76830; 76856; 80053; 81003; 81025; 84702; 85025; 86850; 86900; 93005; 99285

== ENCOUNTER 2021-02-10 12:47 | Emergency (ER) | payer MEDICAID ==
[~2021-02-10] VITALS: Ht 172.7 cm; Wt 90.0 kg
[2021-02-10] MEDS ORDERED: VANCOMYCIN 1 G PREMIX 200 ML IV SCH (13:15)
[2021-02-10] MEDS ORDERED: LEVOFLOXACIN 750MG PREMIX 150 ML IV ONE (13:15)
[2021-02-10 13:28] LABS: BASOPHILS % 1.1 % (0.0-2.0); EOSINOPHILS % 3.4 % (0.0-5.0); HEMATOCRIT. 28.7 % (36.0-48.0); HEMOGLOBIN. 9.6 g/dL (12.0-16.0); LYMPHOCYTES % 25.5 % (20.0-50.0); MEAN CORPUSCULAR HEMOGLOBIN 26.5 pg (28.0-32.0); MEAN PLATELET VOLUME 8.8 fl (7.4-10.4); MONOCYTES % 6.1 % (2.0-8.0); NEUTROPHILS % 63.9 % (40.0-76.0); PLATELET 255 x1000/uL (130-400); RED BLOOD CELL COUNT 3.63 mill/uL (4.2-5.4)
[2021-02-10 13:40] LABS: CHLORIDE 105 mEq/L (98-107)
[2021-02-10 14:55] VITALS: BP 133/82
== END 2021-02-10 15:14 | disposition home or self-care (01) ==
LOC: ER 12:47
DX: R00.2 Palpitations (principal); R42 Dizziness and giddiness; R03.0 Elevated blood-pressure reading, without diagnosis of hypertension; K21.9 Gastro-esophageal reflux disease without esophagitis
CPT/HCPCS: 36415; 71045; 80053; 83880; 84484; 85025; 93005; 99285

== ENCOUNTER 2021-03-28 13:43 | Emergency (ER) | payer MEDICAID ==
[~2021-03-28] VITALS: Ht 160 cm; Wt 84.0 kg
[2021-03-28 17:45] LABS: CREATINE KINASE 143 IU/L (26-192)
[2021-03-28 18:53] VITALS: BP 135/78
== END 2021-03-28 18:54 | disposition home or self-care (01) ==
LOC: ER 13:43
DX: M79.604 Pain in right leg (principal); M79.605 Pain in left leg; M79.10 Myalgia, unspecified site; K21.9 Gastro-esophageal reflux disease without esophagitis; I10 Essential (primary) hypertension; E11.9 Type 2 diabetes mellitus without complications; D64.9 Anemia, unspecified; Z98.890 Other specified postprocedural states; Z79.899 Other long term (current) drug therapy
CPT/HCPCS: 36415; 82550; 99283

== ENCOUNTER 2021-04-19 11:38 | Emergency (ER) | payer MEDICAID, OTHER ==
[~2021-04-19] VITALS: Ht 160 cm; Wt 84.0 kg
[2021-04-19 12:31] LABS: BASOPHILS % 0.6 % (0.0-2.0); EOSINOPHILS % 2.9 % (0.0-5.0); HEMATOCRIT. 30.8 % (36.0-48.0); HEMOGLOBIN. 10.4 g/dL (12.0-16.0); LYMPHOCYTES % 29.7 % (20.0-50.0); MEAN CORPUSCULAR HEMOGLOBIN 27.2 pg (28.0-32.0); MEAN CORPUSCULAR VOLUME 80.5 fL (81.0-99.0); MEAN PLATELET VOLUME 9.2 fl (7.4-10.4); NEUTROPHILS % 59.8 % (40.0-76.0); PLATELET 219 x1000/uL (130-400); RED BLOOD CELL COUNT 3.83 mill/uL (4.2-5.4); RED CELL DISTRIBUTION WIDTH 17.2 % (11.6-14.6)
[2021-04-19 12:38] LABS: CHLORIDE 103 mEq/L (98-107)
[2021-04-19 12:42] LABS: PROTHROMBIN TIME 10.7 sec (9.6-11.0)
[2021-04-19 12:44] LABS: HCG SCREEN NEGATIVE
[2021-04-19] MEDS ORDERED: TOPUD PO (13:43)
[2021-04-19] MEDS ORDERED: ACETAMINOPHEN 325MG TABLET PO ONE (13:45)
[2021-04-19 14:08] VITALS: BP 106/71
== END 2021-04-19 14:09 | disposition home or self-care (01) ==
LOC: ER 11:38
DX: N93.9 Abnormal uterine and vaginal bleeding, unspecified (principal); D64.9 Anemia, unspecified; I10 Essential (primary) hypertension; E11.9 Type 2 diabetes mellitus without complications
CPT/HCPCS: 36415; 80053; 81025; 84703; 85025; 85610; 86850; 86900; 86901; 99283; Z7610

== ENCOUNTER 2021-07-12 12:27 | Emergency (ER) | payer OTHER ==
[~2021-07-12] VITALS: Ht 170.2 cm; Wt 90.0 kg
[~2021-07-12 12:27] MED LIST changes: +CETI10CA2 MT; +FLUT9.9S BOTHNSTRLS; +TETR20SP TP; +TOPUD PO
[2021-07-12] MEDS ORDERED: MAGNESIUM/ALUMINUM HYDROXIDE/SIMETHICONE 30ML UDC PO ONE (13:30)
[2021-07-12] MEDS ORDERED: VISCOUS LIDOCAINE 2% 15 ML UDC MM ONE (13:30)
[2021-07-12 13:36] LABS: BASOPHILS % 0.9 % (0.0-2.0); EOSINOPHILS % 6.2 % (0.0-5.0); HEMATOCRIT. 32.8 % (36.0-48.0); HEMOGLOBIN. 10.7 g/dL (12.0-16.0); LYMPHOCYTES % 29.3 % (20.0-50.0); MEAN CORPUSCULAR HEMOGLOBIN 26.8 pg (28.0-32.0); MEAN CORPUSCULAR VOLUME 82.2 fL (81.0-99.0); MEAN PLATELET VOLUME 8.9 fl (7.4-10.4); MONOCYTES % 6.3 % (2.0-8.0); NEUTROPHILS % 57.3 % (40.0-76.0); PLATELET 272 x1000/uL (130-400); RED CELL DISTRIBUTION WIDTH 15.6 % (11.6-14.6)
[2021-07-12 13:41] LABS: CHLORIDE 106 mEq/L (98-107)
[2021-07-12 13:44] LABS: HCG SCREEN NEGATIVE
[2021-07-12 13:45] LABS: CLARITY URINE CLEAR (CLEAR); COLOR URINE YELLOW (YELLOW); KETONES URINE NEGATIVE (NEGATIVE); LEUKOCYTE ESTERASE URINE NEGATIVE (NEGATIVE); NITRITE URINE NEGATIVE (NEGATIVE); OCCULT BLOOD URINE NEGATIVE (NEGATIVE); PH URINE 7.5 (4.5-8.0); PROTEIN URINE NEGATIVE (NEGATIVE); SPECIFIC GRAVITY URINE 1.003 (1.005-1.030); UROBILINOGEN URINE 0.2 E.U./dL (0.2-1.0)
[2021-07-12 13:46] LABS: ETHANOL BLOOD < 10 mg/dL
[2021-07-12 14:10] LABS: *AMPHETAMINES SCREEN URINE NEGATIVE (NEGATIVE); *BARBITURATES SCREEN URINE NEGATIVE (NEGATIVE); *BENZODIAZEPINES SCREEN URINE NEGATIVE (NEGATIVE); *COCAINE SCREEN URINE NEGATIVE (NEGATIVE); METHADONE URINE SCREEN NEGATIVE (NEGATIVE); OPIATES URINE SCREEN NEGATIVE (NEGATIVE)
[2021-07-12 14:12] LABS: CANNABINOID URINE SCREEN NEGATIVE (NEGATIVE); PHENCYCLIDINE URINE SCREEN NEGATIVE (NEGATIVE)
[2021-07-12] MEDS ORDERED: MAG-55 MT (15:56)
[2021-07-12] MEDS ORDERED: ONDA4TAB5 MT (15:56)
[2021-07-12 16:51] VITALS: BP 121/74
== END 2021-07-12 16:52 | disposition home or self-care (01) ==
LOC: ER 12:27
DX: R10.13 Epigastric pain (principal); R07.2 Precordial pain; K21.9 Gastro-esophageal reflux disease without esophagitis
CPT/HCPCS: 36415; 80053; 80305; 80320; 81003; 81025; 84484; 84703; 85025; 85379; 93005; 99284; G0480

== ENCOUNTER 2021-07-25 11:40 | Emergency (ER) | payer OTHER ==
[~2021-07-25] VITALS: Ht 160 cm; Wt 90.0 kg
[~2021-07-25 11:40] MED LIST changes: +MAG-55 MT; -OMEP40CA12 MT; +OMEP40CA20 MT; +ONDA4TAB5 MT
[2021-07-25 12:15] VITALS: BP 129/84
[2021-07-25] MEDS ORDERED: AMOXICILLIN 500 MG CAPSULE PO ONE (12:30)
[2021-07-25] MEDS ORDERED: ACET-2708 MT (12:40)
[2021-07-25] MEDS ORDERED: AMOX-494 MT (12:40)
== END 2021-07-25 12:58 | disposition home or self-care (01) ==
LOC: ER 11:40
DX: J02.9 Acute pharyngitis, unspecified (principal); K21.9 Gastro-esophageal reflux disease without esophagitis; E11.9 Type 2 diabetes mellitus without complications; I10 Essential (primary) hypertension; Z98.890 Other specified postprocedural states; Z79.4 Long term (current) use of insulin; Z79.899 Other long term (current) drug therapy; Z98.51 Tubal ligation status
CPT/HCPCS: 99283

== ENCOUNTER 2023-04-08 09:36 | Emergency (ER) | payer MEDICAID ==
[~2023-04-08] VITALS: Ht 160 cm; Wt 99.9 kg
[~2023-04-08 09:36] MED LIST changes: +ACET-2708 MT; +AMOX-494 MT
[2023-04-08 10:03] LABS: CLARITY URINE CLEAR (CLEAR); COLOR URINE YELLOW (YELLOW); KETONES URINE NEGATIVE (NEGATIVE); LEUKOCYTE ESTERASE URINE NEGATIVE (NEGATIVE); NITRITE URINE NEGATIVE (NEGATIVE); OCCULT BLOOD URINE 1+ (NEGATIVE); PH URINE 6.5 (4.5-8.0); PROTEIN URINE TRACE (NEGATIVE); SPECIFIC GRAVITY URINE 1.018 (1.005-1.030)
[2023-04-08 10:06] LABS: BASOPHILS % 0.9 % (0.0-2.0); EOSINOPHILS % 6.3 % (0.0-5.0); HEMATOCRIT. 29.1 % (36.0-48.0); HEMOGLOBIN. 9.7 g/dL (12.0-16.0); LYMPHOCYTES % 36.4 % (20.0-50.0); MEAN CORPUSCULAR HEMOGLOBIN 26.4 pg (28.0-32.0); MEAN CORPUSCULAR VOLUME 78.9 fL (81.0-99.0); MEAN PLATELET VOLUME 8.5 fl (7.4-10.4); MONOCYTES % 8.1 % (2.0-8.0); NEUTROPHILS % 48.3 % (40.0-76.0); PLATELET 296 x1000/uL (130-400); RED BLOOD CELL COUNT 3.69 mill/uL (4.2-5.4); RED CELL DISTRIBUTION WIDTH 15.7 % (11.6-14.6)
[2023-04-08 10:14] LABS: CHLORIDE 102 mEq/L (98-107)
[2023-04-08] MEDS ORDERED: KETOROLAC 60MG/2ML VIAL IM ONE (14:00)
[2023-04-08] MEDS ORDERED: ACETAMINOPHEN 325MG TABLET PO ONE (14:00)
[2023-04-08 14:26] VITALS: BP 139/90
[2023-04-08] MEDS ORDERED: TAMS-11 MT (14:31)
[2023-04-08] MEDS ORDERED: ACET-2708 MT (14:31)
[2023-04-08] MEDS ORDERED: IBUP-1525 MT (14:31)
== END 2023-04-08 14:46 | disposition home or self-care (01) ==
LOC: ER 09:36
DX: R10.9 Unspecified abdominal pain (principal); E11.9 Type 2 diabetes mellitus without complications; I10 Essential (primary) hypertension; Z79.899 Other long term (current) drug therapy; Z98.890 Other specified postprocedural states
CPT/HCPCS: 36415; 80053; 81003; 81025; 85025; 96372; 99283; J1885

== ENCOUNTER 2023-04-29 10:51 | Emergency (ER) | payer MEDICAID ==
[~2023-04-29] VITALS: Ht 160 cm; Wt 97.5 kg
[~2023-04-29 10:51] MED LIST changes: +IBUP-1525 MT; +TAMS-11 MT
[2023-04-29 12:00] LABS: HEMATOCRIT. 31.5 % (36.0-48.0); HEMOGLOBIN. 10.1 g/dL (12.0-16.0); LYMPHOCYTES % 29.1 % (20.0-50.0); MEAN CORPUSCULAR HEMOGLOBIN 25.4 pg (28.0-32.0); MEAN CORPUSCULAR VOLUME 79.1 fL (81.0-99.0); MEAN PLATELET VOLUME 8.7 fl (7.4-10.4); NEUTROPHILS % 54.9 % (40.0-76.0); PLATELET 318 x1000/uL (130-400); RED BLOOD CELL COUNT 3.98 mill/uL (4.2-5.4); RED CELL DISTRIBUTION WIDTH 15.5 % (11.6-14.6)
[2023-04-29 12:07] LABS: HCG SCREEN NEGATIVE
[2023-04-29 12:08] LABS: CHLORIDE 103 mEq/L (98-107)
[2023-04-29] MEDS ORDERED: VISCOUS LIDOCAINE 2% 15 ML UDC MM STA (13:50)
[2023-04-29] MEDS ORDERED: FAMO-135 MT (13:54)
[2023-04-29] MEDS ORDERED: MAG355OR21 MT (13:54)
[2023-04-29] MEDS ORDERED: MAGNESIUM/ALUMINUM HYDROXIDE/SIMETHICONE 30ML UDC PO ONE (14:00)
[2023-04-29] MEDS ORDERED: FAMOTIDINE 20MG TABLET PO ONE (14:00)
[2023-04-29 14:03] LABS: CLARITY URINE CLEAR (CLEAR); COLOR URINE YELLOW (YELLOW); KETONES URINE NEGATIVE (NEGATIVE); LEUKOCYTE ESTERASE URINE NEGATIVE (NEGATIVE); NITRITE URINE NEGATIVE (NEGATIVE); OCCULT BLOOD URINE NEGATIVE (NEGATIVE); PH URINE 8.5 (4.5-8.0); PROTEIN URINE TRACE (NEGATIVE); SPECIFIC GRAVITY URINE 1.016 (1.005-1.030)
[2023-04-29 15:07] VITALS: BP 106/61
== END 2023-04-29 15:07 | disposition home or self-care (01) ==
LOC: ER 10:59
DX: R07.89 Other chest pain (principal); K29.70 Gastritis, unspecified, without bleeding; I10 Essential (primary) hypertension; E11.9 Type 2 diabetes mellitus without complications; Z79.899 Other long term (current) drug therapy; Z98.890 Other specified postprocedural states
CPT/HCPCS: 36415; 71045; 80053; 81003; 81025; 83690; 84484; 84703; 85025; 93005; 99285; Z7610

== ENCOUNTER 2023-07-06 18:09 | Emergency (ER) | payer MEDICAID ==
[~2023-07-06] VITALS: Ht 160 cm; Wt 97.0 kg
[~2023-07-06 18:09] MED LIST changes: +FAMO-135 MT; +MAG355OR21 MT
[2023-07-06 18:14] VITALS: O2SAT 100
[2023-07-06 18:55] LABS: BASOPHILS % 0.6 % (0.0-2.0); DIFFERENTIAL COMMENT 0; EOSINOPHILS % 3.6 % (0.0-5.0); HEMOGLOBIN. 10.2 g/dL (12.0-16.0); LYMPHOCYTES % 32.7 % (20.0-50.0); MEAN CORPUSCULAR HEMOGLOBIN 25.7 pg (28.0-32.0); MEAN CORPUSCULAR HGB CONC 32.8 g/dL (31.0-37.0); MEAN CORPUSCULAR VOLUME 78.3 fL (81.0-99.0); MEAN PLATELET VOLUME 9.1 fl (7.4-10.4); MONOCYTES % 7.1 % (2.0-8.0); PLATELET 301 x1000/uL (130-400); RED BLOOD CELL COUNT 3.96 mill/uL (4.2-5.4); RED CELL DISTRIBUTION WIDTH 15.8 % (11.6-14.6); WHITE BLOOD COUNT 7.2 x1000/uL (4.5-11.0)
[2023-07-06 19:10] LABS: CHLORIDE 102 mEq/L (98-107); INDEX HEMOLYSI 1 (1-3); INDEX ICTERIC 1 (1-4); INDEX LIPEMIC 1 (1-3); POTASSIUM 3.6 mEq/L (3.5-5.1); SODIUM 136 mEq/L (136-145)
[2023-07-06 19:12] LABS: CALCIUM 9.4 mg/dL (8.5-10.1)
[2023-07-06 19:17] LABS: ALANINE AMINOTRANSFERASE 32 IU/L (13-61); ALBUMIN 4.1 g/dL (3.4-5.0); ASPARTATE AMINOTRANSFERASE 18 IU/L (15-37); BILIRUBIN TOTAL 0.3 mg/dL (0.1-1.0); CARBON DIOXIDE 27 mEq/L (21-32); GLUCOSE 114 mg/dL (70-105); PROTEIN TOTAL 8.8 g/dL (6.0-8.3); UREA NITROGEN BLOOD 13 mg/dL (7-21)
[2023-07-06 20:16] LABS: TROPONIN I HIGH SENSITIVITY < 4 ng/L (<54)
[2023-07-06] MEDS ORDERED: IOHEXOL-350 100 ML BOTTLE ONE (21:57)
[2023-07-06] MEDS ORDERED: KETOROLAC 30MG/ML VIAL IV ONE (23:30)
[2023-07-07 00:13] VITALS: BP 138/87
[2023-07-07] MEDS ORDERED: AMOX1TAB16 MT (01:56)
[2023-07-07 02:17] VITALS: PULSE 99; RESP 18; TEMP 98.6
== END 2023-07-07 02:20 | disposition home or self-care (01) ==
LOC: ER 18:09
DX: R06.02 Shortness of breath (principal); E11.9 Type 2 diabetes mellitus without complications; K21.9 Gastro-esophageal reflux disease without esophagitis; I10 Essential (primary) hypertension; Z98.890 Other specified postprocedural states; Z79.899 Other long term (current) drug therapy
CPT/HCPCS: 80053; 81025; 85025; 85379; 84484; 36415; 71045; 71275; 93005; 99285; 96374; Q9967; J1885; Z7610

== ENCOUNTER 2023-07-13 13:30 | Emergency (ER) | payer MEDICAID ==
[~2023-07-13] VITALS: Ht 160 cm; Wt 94.0 kg
[~2023-07-13 13:30] MED LIST changes: +AMOX1TAB16 MT
[2023-07-13 13:51] VITALS: BP 137/79; PULSE 100; RESP 19; TEMP 98; O2SAT 100
[2023-07-13] MEDS ORDERED: FLUORESCEIN SODIUM 1MG/STRIP LEFTEYE ONE (15:15)
[2023-07-13] MEDS ORDERED: TETRACAINE 0.5% OPHTH DROPS 4ML LEFTEYE ONE (15:15)
[2023-07-13] MEDS ORDERED: OCUFLX LEFTEYE (16:26)
[2023-07-13] MEDS ORDERED: IBUP-2028 MT (16:32)
[2023-07-13] MEDS ORDERED: TOPUD PO (16:32)
== END 2023-07-13 17:03 | disposition home or self-care (01) ==
LOC: ER 13:54
DX: S00.202A Unspecified superficial injury of left eyelid and periocular area, initial encounter (principal); X58.XXXA Exposure to other specified factors, initial encounter; Y93.89 Activity, other specified; Y92.89 Other specified places as the place of occurrence of the external cause; Y99.8 Other external cause status
CPT/HCPCS: 99283